=== PATIENT | female | born 1990 | race Hispanic/Latino ===

== ENCOUNTER 2019-08-02 17:41 | Inpatient (IN) | payer OTHER ==
[~2019-08-02] VITALS: Ht 160 cm; Wt 104.8 kg
[2019-08-02] MEDS ORDERED: LACTATED RINGERS 1000ML 1,000 ML IV PRN (18:31)
[2019-08-02] MEDS ORDERED: OXYTOCIN-LR 20 UNITS/1000 ML 1,000 ML IV SCH ×2 (18:45→19:15)
[2019-08-02 19:07] LABS: APPEARANCE,URINE Clear (CLEAR); BILIRUBIN,URINE Negative (NEGATIVE); COLOR,URINE Dark Yellow (YELLOW); GLUCOSE, URINE (UA) Negative (NEGATIVE); KETONES,URINE >=80 mg/dL (NEGATIVE); LEUKOCYTE ESTERASE ,URINE Negative (NEGATIVE); NITRATE,URINE Negative (NEGATIVE); OCCULT BLOOD,URINE Negative (NEGATIVE); PH,URINE 6.5 (5.0-8.0); PROTEIN,URINE Negative (NEGATIVE)
[2019-08-02 20:00] VITALS: BP 118/75
[2019-08-02 20:05] LABS: HEMATOCRIT 31.9 % (36-48); MEAN CORPUSCULAR HEMOGLOBIN 27.4 pg (27.0-33.0); MEAN CORPUSCULAR VOLUME 88.4 fL (79-99); PLATELET COUNT (AUTO) 346 K/uL (130-400); RED BLOOD CELL COUNT(AUTO) 3.61 MIL/uL (4.00-5.50); RED CELL DISTRIBUTION WIDTH 13.2 % (11.0-15.5); WHITE BLOOD COUNT (AUTO) 12.3 K/uL (4.8-10.8)
[2019-08-03] VITALS (8 sets, daily range): BP systolic 114–136; BP diastolic 60–83
[2019-08-03] MEDS ORDERED: OXYTOCIN-LR 20 UNITS/1000 ML 1,000 ML IV SCH (05:00)
[2019-08-03] MEDS ORDERED: MEPERIDINE-PF 50 MG/ML SYG IVP SCH (09:15)
[2019-08-03] MEDS ORDERED: PROMETHAZINE HCL 25 MG/ML 1ML AMPULE IM SCH (09:15)
[2019-08-03] MEDS ORDERED: EPHEDRINE SULFATE 50 MG/ML AMPULE IVP PRN (10:15)
[2019-08-03] MEDS ORDERED: LACTATED RINGERS 500 ML 500 ML IV PRN (10:15)
[2019-08-03] MEDS ORDERED: NALOXONE HCL 0.4 MG/1 ML ML IV PRN (10:15)
[2019-08-03] MEDS ORDERED: PREN-196 PO (15:17)
[2019-08-03] MEDS ORDERED: FLU VACC QS2019-20 36MOS UP/PF 60 MCG/0.5 ML ML IM ONE (15:30)
[2019-08-03] MEDS ORDERED: MEASLES/MUMPS/RUBELLA VACCINE, LIVE 0.5 ML/VIAL SQ PRN (15:30)
[2019-08-03] MEDS ORDERED: ACETAMINOPHEN 325 MG TAB PO PRN (15:30)
[2019-08-03] MEDS ORDERED: DIPH,PERTUSS(ACELL),TET VAC/PF 0.5 ML VIAL IM PRN (15:30)
[2019-08-03] MEDS ORDERED: LANOLIN 30GM OINTMENT TP PRN (15:30)
[2019-08-03] MEDS ORDERED: WITCH HAZEL 1 PAD TP PRN (15:30)
[2019-08-03] MEDS ORDERED: BENZOCAINE/LANOLIN/ALOE VERA 60 ML AEROSOL TP PRN (15:30)
--- NOTE | 2019-08-03 16:17 | NUR ---
QBL - 101 gm Addendum: 08/03/19 at 1659 by MELITON SANDOVAL RN Amended: Links added.
[2019-08-03] MEDS: IBUPROFEN 600 MG TABLET PO PRN (17:37)
[2019-08-03] MEDS ORDERED: LIDOCAINE HCL 1% 20 ML VIAL ONE (18:49)
[2019-08-03] MEDS: DOCUSATE SODIUM 100 MG CAP PO SCH (20:24)
[2019-08-04] VITALS (14 sets, daily range): BP systolic 102–121; BP diastolic 56–79
[2019-08-04] MEDS: IBUPROFEN 600 MG TABLET PO PRN ×3 (03:38→16:35)
[2019-08-04 05:29] LABS: HEMATOCRIT 23.7 % (36-48); MEAN CORPUSCULAR HEMOGLOBIN 27.8 pg (27.0-33.0); MEAN CORPUSCULAR HGB CONC 31.2 g/dL (32.0-36.0); MEAN CORPUSCULAR VOLUME 89.1 fL (79-99); PLATELET COUNT (AUTO) 279 K/uL (130-400); RED BLOOD CELL COUNT(AUTO) 2.66 MIL/uL (4.00-5.50); RED CELL DISTRIBUTION WIDTH 13.3 % (11.0-15.5); WHITE BLOOD COUNT (AUTO) 17.4 K/uL (4.8-10.8)
[2019-08-04] MEDS ORDERED: SODIUM CHLORIDE 0.9% 1000ML 1,000 ML IV SCH (07:00)
[2019-08-04 07:14] LABS: HEPATITIS Bs ANTIGEN SCREEN P Negative (Negative)
--- NOTE | 2019-08-04 08:21 | NUR ---
1st unit of blood started transfusing, witnessed by Mraibeth Parks LVN Addendum: 08/04/19 at 0829 by MELITON SANDOVAL RN Amended: Links added.
[2019-08-04] MEDS: DOCUSATE SODIUM 100 MG CAP PO SCH ×2 (09:20→20:23)
--- NOTE | 2019-08-04 11:06 | NUR ---
1st unit of blood transfused, no reactions noted Addendum: 08/04/19 at 1109 by MELITON SANDOVAL RN Amended: Links added.
--- NOTE | 2019-08-04 11:24 | NUR ---
2ND unit of blood started infusing, witnessed by Maribeth Parks LVN Addendum: 08/04/19 at 1127 by MELITON SANDOVAL RN Amended: Links added.
--- NOTE | 2019-08-04 14:05 | NUR ---
2ND unit of blood transfused, no reactions noted Addendum: 08/04/19 at 1426 by MELITON SANDOVAL RN Amended: Links added.
[2019-08-05 03:44] VITALS: BP 101/57
[2019-08-05 07:26] VITALS: BP 128/88
[2019-08-05] MEDS: IBUPROFEN 600 MG TABLET PO PRN (09:00)
[2019-08-05] MEDS: DOCUSATE SODIUM 100 MG CAP PO SCH (09:00)
[2019-08-05 09:56] LABS: HEMATOCRIT 28.7 % (36-48)
--- NOTE | 2019-08-05 11:20 | NUR ---
verbal and written discharge instructions given, informed of the follow up appointment, informed to call the doctor for any concerns, pt voiced understanding to all things discussed. Addendum: 08/05/19 at 1136 by MELITON SANDOVAL RN Amended: Links added.
[2019-08-05 11:24] VITALS: BP 128/78
--- NOTE | 2019-08-05 12:25 | NUR ---
pt is dismissed, brought to private car via wheelchair by mago hamlin. pt is in stable condition. Addendum: 08/05/19 at 1251 by MELITON SANDOVAL RN Amended: Links added.
== END 2019-08-05 12:25 | disposition home or self-care (01) | DRG 807 ==
LOC: EDSTATUS 17:42 → LDH 17:43 → OBSVTOIN 17:43 → LDH 18:16 → WSH 08-03 14:45
PROVIDERS: ADMIT Obstetrics & Gynecology; ATTEND Obstetrics & Gynecology
PROC: 10E0XZZ Delivery of Products of Conception, External Approach (ICD-10-PCS; principal; 2019-08-03)
PROC: 0UQGXZZ Repair Vagina, External Approach (ICD-10-PCS; 2019-08-03)
PROC: 3E0R3BZ Introduction of Anesthetic Agent into Spinal Canal, Percutaneous Approach (ICD-10-PCS; 2019-08-03)
PROC: 00HU33Z Insertion of Infusion Device into Spinal Canal, Percutaneous Approach (ICD-10-PCS; 2019-08-03)
PROC: 3E0234Z Introduction of Serum, Toxoid and Vaccine into Muscle, Percutaneous Approach (ICD-10-PCS; 2019-08-03)
PROC: 3E0134Z Introduction of Serum, Toxoid and Vaccine into Subcutaneous Tissue, Percutaneous Approach (ICD-10-PCS; 2019-08-03)
PROC: 3E02340 Introduction of Influenza Vaccine into Muscle, Percutaneous Approach (ICD-10-PCS; 2019-08-03)
PROC: 30233N1 Transfusion of Nonautologous Red Blood Cells into Peripheral Vein, Percutaneous Approach (ICD-10-PCS; 2019-08-03)
DX: O71.4 Obstetric high vaginal laceration alone (principal); Z37.0 Single live birth; Z3A.38 38 weeks gestation of pregnancy; Z23 Encounter for immunization
CPT/HCPCS: 36415; 36430; 81003; 82947; 85014; 85018; 85027; 86592; 86850; 86900; 86901; 86922; 87340; A4314; G0378; J2175; J2550; J2590; J3490; J7030; J7120; P9016; Q2035